=== PATIENT | female | born 1980 | race Caucasian/White ===

== ENCOUNTER 2021-01-03 12:42 | Emergency (ER) | payer OTHER, SELFPAY ==
[2021-01-03 13:00] VITALS: BP 140/82; PULSE 97; RESP 17; TEMP 36.4; O2SAT 99
--- NOTE | 2021-01-03 13:06 | ED.GENADULT ---
HPI - General Adult General Chief complaint: Upper Respiratory Infection Stated complaint: sore throat Source: patient Mode of arrival: ambulatory Limitations: no limitations History of Present Illness HPI narrative: Patient presents for evaluation of sore throat for the last 2 days. She denies any fever, chills, nausea, vomiting, significant cough, shortness of breath, otalgia or body aches. Her daughter had similar symptoms last week and was placed on amoxicillin for positive strep test. She is taking ibuprofen to assist with her symptoms, which has been helpful. She rates pain 3/10 in severity. She does not smoke. Related Data Home Medications Medication Instructions Recorded Confirmed olmesartan-hydrochlorothiazide 1 tablet PO DAILY 01/03/21 01/03/21 ropinirole 1 mg PO DAILY 01/03/21 01/03/21 sertraline 100 mg PO DAILY 01/03/21 01/03/21 Allergies Allergy/AdvReac Type Severity Reaction Status Date / Time codeine Allergy Intermediate SWELLING,RA Verified 01/03/21 12:48 SH hydrocodone Allergy Mild Itching Verified 01/03/21 12:48 Opioids - Morphine Analogues Allergy Mild Itching Verified 01/03/21 12:48 Review of Systems Review of Systems: Narrative: CONSTITUTIONAL: Denies fever, chills, or sweats. EYES: Denies visual changes, redness, or discharge. ENT: Reports sore throat. Denies rhinorrhea, congestion, or otalgia. CARDIOVASCULAR: Denies chest pain, palpitations, or edema. RESPIRATORY: Denies cough or dyspnea. GASTROINTESTINAL: Denies abdominal pain, nausea, vomiting, or diarrhea. GENITOURINARY: Denies dysuria or hematuria. SKIN: Denies rash or itching. MUSCULOSKELETAL: Denies back pain, joint pain, or myalgia. NEUROLOGIC: Denies headache, numbness, dizziness, or weakness. PSYCHIATRIC: Denies anxiety or depression. [facility] Past Medical History Medical History (Updated 01/03/21 @ 13:22 by KAREN Oliva, BALJIT) Anxiety Depression Hypertension Surgical History Surgical History History of appendectomy Family History Family History Father Hypertension Social History Social History (Updated 01/03/21 @ 13:11 by Tim Turner, [facility], ) Smoking status: Never smoker Substance use: never Living arrangements: with family Gender identity (if verbalized by the patient): Female Sexual Orientation (if Verbalized by the Patient): Straight or Heterosexual Spiritual care concerns: No Exam Narrative: Exam Narrative: GENERAL: Well-appearing, well-nourished, and in no acute distress. HEAD: Normocephalic, atraumatic. EYES: PERRLA and EOMI. ENT: Nares clear, no rhinorrhea or epistaxis. Mucous membranes moist. Posterior pharyngeal erythema without exudate. Uvula is midline. . Bilateral TMs pearly cain nonbulging NECK: Supple. No adenopathy or masses. No carotid bruits or JVD CHEST: Clear to auscultation. No respiratory distress. No wheezes rales or rhonchi HEART: Regular rate and rhythm. No murmur heard. Normal peripheral pulses. ABDOMEN: Soft, nontender, nondistended, normal active bowel sounds. EXTREMITIES: Normal range of motion. No edema. SKIN: Warm, dry, no rash. NEURO: No focal deficits. Alert and oriented x3. PSYCH: Normal mood and affect. Course Course Emergency Course: This is a 40-year-old female who presented with complaints of sore throat with recent strep exposure. Rapid strep was negative. Will treat with oral amoxicillin which she has tolerated in the past. She should follow-up outpatient for further evaluation treatment return for worsening symptoms. Patient seen with plan of care. Vital Signs Vital signs: Vital Signs Temperature 36.4 C 01/03/21 13:00 Pulse Rate 97 01/03/21 13:00 Respiratory Rate 17 01/03/21 13:00 Blood Pressure 140/82 01/03/21 13:00 Pulse Oximetry 99 01/03/21 13:00 Temperature 36.4 C 01/03/21 13:00 P
== END 2021-01-03 13:32 | disposition home or self-care (01) ==
PROVIDERS: Emergency Provider Nurse Practitioner; PCP Internal Medicine
DX: J02.9 Acute pharyngitis, unspecified (principal); Z20.818 Contact with and (suspected) exposure to other bacterial communicable diseases; I10 Essential (primary) hypertension; F41.9 Anxiety disorder, unspecified; F32.9 Major depressive disorder, single episode, unspecified
CPT/HCPCS: 87081; 87880; 99213; G0463

== ENCOUNTER 2023-09-18 12:16 | Outpatient (CLI) | payer OTHER, SELFPAY ==
[2023-09-18 13:47] LABS: Hematocrit 38.9 % (37.0-47.0); Hemoglobin 12.9 g/dL (12.0-15.0); Mean Corpuscular HGB Conc 33.2 g/dl (32-36); Mean Corpuscular Hemoglobin 29.2 pg (26-34); Mean Platelet Volume 10.7 fl (7.4-10.4); Platelet Count Result 238 k/mm3 (150-375); Red Blood Count 4.42 M/mm3 (4.2-5.4); Red Cell Distribution Width 13.7 % (11.5-14.5); White Blood Count 3.9 K/mm3 (4.5-10.0)
[2023-09-18 13:58] LABS: Anion Gap 4 mmol/L (4-12); Blood Urea Nitrogen 15 mg/dL (7-17); Calcium 9.2 mg/dL (8.4-10.2); Carbon Dioxide 30 mmol/L (22-30); Chloride 103 mmol/L (98-107); Estimated Glomerular Filt Rate > 60; Glucose 88 mg/dL (65-110); Potassium 3.9 mmol/L (3.4-5.0); Sodium 137 mmol/L (137-145)
== END 2023-09-18 12:17 | disposition home or self-care (01) ==
LOC: ANHSURGERY 12:20
PROVIDERS: Anesthesiology; Visit Provider Obstetrics & Gynecology
DX: N92.0 Excessive and frequent menstruation with regular cycle (principal); I10 Essential (primary) hypertension; Z01.818 Encounter for other preprocedural examination
CPT/HCPCS: 36415; 80048; 85027

== ENCOUNTER 2023-09-21 01:27 | Day surgery (SDC) | payer OTHER, SELFPAY ==
[2023-09-07 09:11] VITALS: BMI 21.4
--- NOTE | 2023-09-07 09:12 | PC.NURSE ---
Report to the Outpatient Waiting Room, entrance under the green pavilion located off [facility], at time _0630_ on date _[id number]_. Planned Procedure Time: _0830_. Time changes happen often and if your time is changed the preop area will call you the afternoon before. - You and your visitor will be asked to self-screen and do not enter if you have any COVID symptoms. - A mask is optional within the hospital at this time. Patients may have clear liquids (water, carbonated beverages, clear teas, apple juice) until 3 hours prior to surgery with a maximum of 20 ounces. - No food from midnight until time of surgery Take the following medications with a SIP of water the morning of surgery: ___Sertraline DO NOT STOP ANY OF YOUR OTHER PRESCRIPTION MEDICATIONS PRIOR TO SURGERY ?EXCEPT THE FOLLOWING Medications to discontinue per physician None Date to take last dose Please no make-up, nail mongolian, hairspray, perfume, deodorant, or body powder the day of surgery. No jewelry (including any body piercings) or valuables the day of surgery, leave them at home. Please take a shower or bath the night before, or the morning of, surgery with an antibacterial soap. Wear comfortable, loose fitting clothing. - Jewelry must be removed prior to entering the operating room. Rings and piercings that are not removed may be cut off. - The hospital will not accept responsibility for valuables. - Please leave all valuables, including medications, at home the day of surgery. If you are going home after surgery, a licensed bulk tank driver must drive you home. - NO public transportation without another adult if you receive anesthesia. - We recommend that an adult stay with you for 24 hours following discharge. - We also recommend that you do not drive, make important decision, drink alcoholic beverages, or take any drugs that were not prescribed by your health care provider for at least 24 hours after your discharge time. Follow any additional instructions given to you from your surgeon. If you or anyone in your household have experienced Covid symptoms in the past week, please notify your surgeon or the nurse liaison at the phone number below for possible testing. Telephone instructions given to _Ann__and asked if any additional questions and then verbalized understanding. Patient advised to call surgeon office or pre surgery nurse liaison [phone] if any additional questions.
--- NOTE | 2023-09-19 17:33 | PM.IMHP ---
H&P: HPI History of Present Illness Date/Time: 09/19/23 17:33 43-year-old 4 para 2021 female presents for evaluation regarding heavy vaginal bleeding. Cycles lasting 5-7 days with 3-4 days heavy with clots and significant amount of cramping. Cramping is tolerable though the bleeding has become more significant and more problematic over time. Ultrasound revealed no significant abnormalities though the endometrium is thickened at 12mm. Multiple options have been discussed and will be proceeding with hysteroscopy with uterine curettings, possible polypectomy if 1 is noted. Does not desire endometrial ablation at this time, will likely she use to have progesterone IUD placed a postoperatively. Chief Complaint: menometrorrhagia Review of Systems Review of Systems: All systems reviewed & are unremarkable except as noted in HPI and below PMFSH Past Medical History Medical History Anemia Anxiety Depression Hypertension Infertility Migraines , ectopic (04/12/08) ECTOPIC /TUBE REMOVED LEFT Screening mammogram, encounter for Surgical History Surgical History History of appendectomy (~05/12/04) History of gynecological procedure (04/16/05) left labial mass Family History Family History Father Hypertension Grandparent Cerebrovascular accident paternal grandfather Social History Social History Smoking status: Never smoker Second hand tobacco smoke exposure: No Alcohol intake: never Substance use: never Substance use type: does not use Do You Feel Safe in your Home?: Yes Lack of Transportation: No Lack of Food: Never True Current Housing: I Have Housing Concerned About Future Housing: No Difficulty Paying Gas/Electric Bills: No Difficulty Paying for Meds: No Currently Unemployed: No Education: Master's Degree or Higher Difficulty w/ Childcare or Family Care: No Living arrangements: with family Additional living arrangements comments: Occupation/Education: occupation 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 Gender identity (if verbalized by the patient): Female Sexual Orientation (if Verbalized by the Patient): Straight or Heterosexual Spiritual care concerns: No Meds Home Medications and Allergies Home Medications Medication Instructions Recorded Confirmed Type lindaartan 20 1 tablet PO DAILY 01/03/21 09/07/23 History mg-hydrochlorothiazide 12.5 mg tablet ropinirole 1 mg tablet 1 mg PO DAILY 01/03/21 09/07/23 History sertraline 100 mg tablet 100 mg PO DAILY 01/03/21 09/07/23 History ferrous sulfate 325 mg (65 mg 325 mg PO DAILY 07/25/23 09/07/23 History iron) tablet Allergies Allergy/AdvReac Type Severity Reaction Status Date / Time codeine Allergy Intermediate SWELLING,RA Verified 09/07/23 09:06 SH hydrocodone Allergy Mild Itching Verified 09/07/23 09:06 Opioids - Morphine Analogues Allergy Mild Itching Verified 09/07/23 09:06 Exam Const: General: cooperative and healthy appearing Resp: Effort & Inspection: normal respiratory effort Auscultation: clear to auscultation bilaterally Cardio: Rate: regular rate Rhythm: regular rhythm GI: Inspection: normal to inspection Auscultation: normal bowel sounds : External Female Exam: normal external appearance Speculum Exam - Vagina: normal appearance of the vagina Speculum Exam - Cervix: normal appearance of the cervix Bimanual exam- vagina & uterus: normal bimanual exam Bimanual Exam- Adnexa, other: normal adnexae Assessment and Plan Assessment and plan (1) Menorrhagia: Code(s): N92.0 - Excessive and frequent menstruation with regular cycle Status: Acute (2) Endometrial thickening on ultrasoun
[2023-09-21 06:37] VITALS: BP 118/72; PULSE 68; RESP 16; TEMP 37.1; O2SAT 99
[2023-09-21 06:40] VITALS: BMI 20.7
[2023-09-21] MEDS: LACTATED RINGERS 1,000 ML 30 ML IV CONT (07:20)
[2023-09-21] MEDS: ACETAMINOPHEN 500 MG TABLET 1000 MG PO (07:23)
--- NOTE | 2023-09-21 07:26 | WPDHPUPDATE1 ---
History and Physical Update Update Date/Time: 09/21/23 07:26 History and Physical has been reviewed, including an updated exam of the patient. There are NO changes in the patient's condition. Risks, benefits, and alternatives have been discussed and questions answered. Patient agrees to proceed with procedure.
--- NOTE | 2023-09-21 08:21 | WPDANESEPPF ---
Anes - Initial Pre Proc Eval Procedure: Operation Date: 09/21/23 08:30 Proposed Procedures p Hysteroscopy Dilation and Curettage - River Carter MD Date/Time: 09/21/23 08:21 Surgeon: River Carter MD Pre Op Diagnosis: Menorrhagia Patient Data Age: 43 Gender: F Height: 1.57 m Weight: 51.5 kg Last Vital Signs Temp 98.8 F 09/21/23 06:37 Pulse 68 09/21/23 06:37 Resp 16 09/21/23 06:37 BP 118/72 09/21/23 06:37 Pulse Ox 99 09/21/23 06:37 O2 Del Method Room Air 09/21/23 06:37 Allergies Allergy/AdvReac Type Severity Reaction Status Date / Time codeine Allergy Intermediate SWELLING,RA Verified 09/21/23 07:40 SH hydrocodone Allergy Mild Itching Verified 09/21/23 07:40 Opioids - Morphine Analogues Allergy Mild Itching Verified 09/21/23 07:40 Home Medications Medication Instructions Recorded Confirmed Type olmesartan 20 1 tablet PO DAILY 01/03/21 09/07/23 History mg-hydrochlorothiazide 12.5 mg tablet ropinirole 1 mg tablet 1 mg PO DAILY 01/03/21 09/07/23 History sertraline 100 mg tablet 100 mg PO DAILY 01/03/21 09/07/23 History ferrous sulfate 325 mg (65 mg 325 mg PO DAILY 07/25/23 09/07/23 History iron) tablet Patient hx anesthesia problems: none Family hx anesthesia problems: none Results Review: All pre-operative results and documents have been reviewed as part of the pre-operative evaluation. [facility] Past Medical History Medical History Anemia Anxiety Depression Hypertension Infertility Migraines , ectopic (04/12/08) ECTOPIC /TUBE REMOVED LEFT Screening mammogram, encounter for Surgical History Surgical History History of appendectomy (~05/12/04) History of gynecological procedure (04/16/05) left labial mass Family History Family History Father Hypertension Grandparent Cerebrovascular accident paternal grandfather Social History Social History Smoking status: Never smoker Second hand tobacco smoke exposure: No Alcohol intake: never Substance use: never Substance use type: does not use Do You Feel Safe in your Home?: Yes Lack of Transportation: No Lack of Food: Never True Current Housing: I Have Housing Concerned About Future Housing: No Difficulty Paying Gas/Electric Bills: No Difficulty Paying for Meds: No Currently Unemployed: No Education: Master's Degree or Higher Difficulty w/ Childcare or Family Care: No Living arrangements: with family Additional living arrangements comments: Occupation/Education: occupation 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 Gender identity (if verbalized by the patient): Female Sexual Orientation (if Verbalized by the Patient): Straight or Heterosexual Spiritual care concerns: No Anes - Eval Final PreProcedure Day of Procedure 09/21/23 08:21 Patient weight: normal Heart: regular rate and rhythm Lungs: clear to auscultation Airway: Mallampati scale class II Neurological: alert and oriented Last oral intake: >/= 8 hours ASA classification: II Emergent: no Anesthetic plan: proceed Anesthesia type and monitoring: general GIVS and standard monitoring Results Review: All pre-operative results and documents have been reviewed as part of the pre-operative evaluation. Informed Consent: The patient's anesthetic plan and its attendant risks and benefits were discussed with the patient/family/POA. Questions were solicited and answers provided to the satisfaction of the patient/family/POA.
--- NOTE | 2023-09-21 09:00 | W.PM.PROC2 ---
Procedure Note - Detailed Date of Procedure 09/21/23 Pre-op Diagnosis Menorrhagia Post-op Diagnosis Same Procedure Performed Hysteroscopy with uterine curettings Surgeon River Carter MD Anesthesia MAC Findings Thickened endometrial cavity, no specific polyps or fibroids noted. Uterine prolapse to the introitus with gentle traction noted as well. Description of Procedure Patient was prepped and draped in usual manner for this procedure. Cervix was dilated to allow the hysteroscope to be placed which then showed findings as noted above. Curettings were obtained with moderate amount of tissue removed. No significant bleeding and patient was sent to recovery room in stable condition. Estimated Blood Loss 10 Drains No Packing No Pathology Yes Complications No immediate complications Condition Stable Disposition PACU [facility] Billing Surgery - Charge Forward: Surgery Billing
[2023-09-21 09:04] VITALS: BP 101/57; PULSE 50; RESP 12; O2SAT 100
[2023-09-21 09:30] VITALS: BP 110/68; PULSE 47; RESP 12
[2023-09-21 09:53] VITALS: BP 108/62; PULSE 48; RESP 13
== END 2023-09-21 10:02 | disposition home or self-care (01) ==
PROVIDERS: Visit Provider Obstetrics & Gynecology
PROC: 0U5B8ZZ Destruction of Endometrium, Via Natural or Artificial Opening Endoscopic (ICD-10-PCS; CPT 58563; principal; 2023-09-21 08:30)
DX: N92.0 Excessive and frequent menstruation with regular cycle (principal); N81.4 Uterovaginal prolapse, unspecified; I10 Essential (primary) hypertension; D64.9 Anemia, unspecified; F41.9 Anxiety disorder, unspecified; F32.A Depression, unspecified
CPT/HCPCS: 58558; 36415; 80048; 85027; 88305; A9270; J1100; J2250; J2405; J2704; J3010; J7120